=== PATIENT | male | born 1940 | race African-American/Black ===

== ENCOUNTER 2024-02-06 13:56 | Emergency (ER) | payer MEDICAID, SELFPAY ==
--- NOTE | ~2024-02-06 | CT_ITS ---
EXAMINATION: CT HEAD WITHOUT CONTRAST (STROKE PROTOCOL) CLINICAL INFORMATION: Stroke protocol. Unresponsive. Question left versus right sided weakness. COMPARISON: None available. TECHNIQUE: Contiguous axial imaging was performed from the skull base to vertex without intravenous administration of contrast. This CT examination was performed using dose optimization techniques as appropriate, variously including the following: *Automated exposure control *Adjustment of mA and/or kV according to patient size (this includes techniques or standardized protocols for targeted exams where dose is matched to indication/reason for exam; i.e. extremities or head) *Use of iterative reconstruction technique DLP: 820 mGy-cm FINDINGS: There is no evidence of an extra-axial collection. There is no evidence of intra or extra-axial hemorrhage. The ventricles are extra-axial CSF spaces are prominent suggestive of generalized atrophy. There is nonspecific periventricular white matter disease. There is low-attenuation seen in the bilateral basal ganglia and possible internal capsule, right side greater than left, and left side of the thalamus questionable for lacunar infarcts. No old exams are available for comparison and these are age indeterminate. This could be better evaluated with MRI of the brain if clinically indicated. No mass or mass effect. Atherosclerotic disease. No skull fracture. Clear sinuses and mastoid air cells and middle ears. CT/CT head for stroke IMPRESSION: Generalized atrophy and nonspecific periventricular white matter disease. Question bilateral basal ganglia/internal capsule and left thalamic lacunar infarcts. No old exams are available for comparison and these are age indeterminate. Further evaluation with MRI to evaluate for acute stroke should be considered if clinically indicated. This critical result was discussed with Rashaad Odell at 1449 hours on 02/06/2024. It was ascertained that the content and urgency of the report was understood at the time of direct communication.
--- NOTE | ~2024-02-06 | XR_ITS ---
EXAMINATION: XR CHEST CLINICAL INFORMATION: Post intubation. COMPARISON: None available. TECHNIQUE: Frontal portable view of the chest was obtained. 2:29 PM FINDINGS: Tubes and lines: 1. Endotracheal tube catheter tip 5 cm above the eleanor. 2. Enteric catheter tip and sidehole in stomach. Lung volume low causing prominence of the bronchovascular markings. No overt pulmonary edema. No focal consolidation. No pleural effusion and no pneumothorax. XR/XR chest 1V IMPRESSION: 1. Endotracheal tube catheter tip 5 cm above the eleanor. 2. Enteric catheter tip and sidehole in stomach. 3. Low lung volume causing prominence of the bronchovascular markings. No focal consolidation.
--- NOTE | 2024-02-06 14:00 | PC.NURSE ---
Addendum entered by Jessica Castellon 02/06/24 15:14: See paper charting for more indepth patient care comments and time stamps. Original Note: Pt presented to ED via EMS from [facility], EMS reports SNF called due to pt being unresponsive. LKWT 1230PM, staff went into room at 1PM and found him unresponsive and called for EMS. Pt is a DNR/DNI and do not transfer to hospital, however, family override MOLST. EMS called in STROKE ALERT, also gave 2 mg of narcan IN due to pinpoint pupils with no effect. Pt is normally alert and talkative at baseline, confused due to dementia. Pt presented unresponsive with poor respiratory drive. MD, RT and RNs at bedside. Decision made by MD to RSI and secure airway. Pt medicated per JAN, IO access in established in right tibia and left humerus due to no IV access obtained (multiple attempts, pt has very poor venous access). 7.5 ETT placed by MD, no incident during intubation, pt tolerated well. Pt placed on vent and sent to CT scan with RNs. Vital signs listed above.
[2024-02-06 14:03] VITALS: BP 151/75; PULSE 70; RESP 12; O2SAT 98
--- NOTE | 2024-02-06 14:05 | ECG_ITS ---
Test Reason : AMS Blood Pressure : / mmHG Vent. Rate : 081 BPM Atrial Rate : 081 BPM P-R Int : 174 ms QRS Dur : 116 ms QT Int : 442 ms P-R-T Axes : 054 054 -46 degrees QTc Int : 513 ms Normal sinus rhythm Incomplete left bundle branch block Abnormal QRS-T angle, consider primary T wave abnormality Prolonged QT Abnormal ECG No previous ECGs available Referred By: Anna Ponce Electronically Signed By:Nahum Castro
[2024-02-06 14:06] LABS: Glucose, Whole Blood 101 mg/dL (60-115)
[2024-02-06] MEDS: Etomidate 20 MG/10 ML VIAL IVPUSH (14:08)
[2024-02-06] MEDS: Rocuronium Bromide 50 MG/5 ML VIAL IVPUSH (14:09)
[2024-02-06 14:15] VITALS: BP 217/112; PULSE 84; RESP 18; O2SAT 98
[2024-02-06 14:18] VITALS: BMI 29.9
--- NOTE | 2024-02-06 14:19 | ED_ITS ---
HPI - Altered Mental Status General Chief Complaint: Stroke Stated Complaint: UNRESPONSIVE WITH PULSE,STROKE ALERT Time Seen by Provider: 02/06/24 14:04 Source: EMS Mode of arrival: EMS Limitations: altered mental status History of Present Illness HPI narrative: 83-year-old male with a history of coronary disease, hypertension, hyperlipidemia, stroke with aphasia, cirrhosis, abdominal aortic aneurysm, BPH, dementia, aortic stenosis, mitral insufficiency who was transferred from his long-term care facility, [facility] for evaluation of altered mental status. Information came from the paramedics. The paramedics state that the patient was last known well at 12:30. When they checked in on him again at 13:00 he was altered and unresponsive. Transfer no from the facility states the following ?unresponsive. Kind of responsive to sternal rub/blinks his eyes ?. Patient's vital signs at the facility were as follows blood pressure 177/107, heart rate 70, respiratory 12, temperature 98.6 degrees, O2 saturation 100% on room air, point of care glucose was 135 taking at 13:00 hours. Patient was brought to emergency department as a possible stroke however paramedics reported that the patient became less responsive and he was brought immediately to resuscitation room. Paramedics did give Narcan with only minimal response. He was given a 2nd dose of Narcan 4 mg intranasally with no response. Patient was not responding to sternal rub or painful stimuli, his respiratory rate was elevated but his respiratory effort was very diminished. Given this fact, the patient was intubated prior to getting a CT scan of the head. Related Data Allergies Allergy/AdvReac Type Severity Reaction Status Date / Time Unable to Assess Allergy Verified 02/06/24 14:05 Review of Systems 2 Review of Systems: Yes Unobtainable due to mental condition PMFSH Social History Social History Advance Directives: Yes Advance Directives Information Provided: No Advance Directives on File: No Physical Exam ED Vital Signs: Vital Signs - 24 hr 02/06/24 14:03 02/06/24 14:15 02/06/24 14:40 Temperature Pulse Rate 70 84 Respiratory Rate 12 18 Blood Pressure 151/75 H 217/112 H Pulse Oximetry 98 98 Oxygen Delivery Method Room Air Mechanical Ventilation Oxygen Flow Rate 15 Fraction of Inspired Oxygen 40 02/06/24 14:59 Temperature 96.4 F L Pulse Rate 81 Respiratory Rate 16 Blood Pressure 170/91 H Pulse Oximetry 100 Oxygen Delivery Method Mechanical Ventilation Oxygen Flow Rate Fraction of Inspired Oxygen 40 BMI result Body Mass Index 29.9 Vital signs revealed an elevated blood pressure initially of 151/75 and after intubation blood pressure was elevated 217/112, O2 saturation was 98% on room air but the patient's respiratory effort appeared to be compromised Exam: General: Patient was unresponsive to painful stimuli Head: Normocephalic, atraumatic EENT: Pupils pinpoint, Lids normal, sclera normal, conjunctiva normal, nose normal , very poor dentition, Neck: No ecchymosis or adenopathy Lung: Very diminished lung sounds with poor inspiratory and expiratory flow Chest: Minimal respiratory effort/chest movement Heart: regular rate and rhythm, normal S1, S2 no murmurs or rubs Abdomen: soft, nondistended Extremities: No deformity Neuro: Not responsive to painful stimuli Medications Administered Discontinued Medications Generic Name Dose Route Start Last Admin Trade Name Freq PRN Reason Stop Dose Admin Etomidate 20 mg 02/06/24 14:16 02/06/24 14:08 Etomidate 20 Mg/10 Ml Vial IVPUSH 02/06/24 14:17 20 mg ONCE ONE Administration Rocuronium Almo 50 mg 02/06/24 14:16 02/06/24 14:09 Rocuronium Almo 50 Mg/5 Ml Vial IVPUSH 02/06/24 14:17 50 mg ONCE ONE Administration Medical Decision Making Medical Decision Making [facility] Narrative: 83-year-old male with a history of coronary disease, hypertension, hyperlipidemia, stroke with aphasia, cirrhosis, abdominal aortic aneurysm, BPH, dementia, aortic stenosis, mitral insufficiency who was transferred from his long-term care facility, [facility] for evaluation of altered mental status. Patient's last well-known time was 12:30 hours and he was found unresponsive at 13:00 hours. Paramedics reported that his level of consciousness decreased during transport and I did give intranasal Narcan with no improvement he also received intranasal Narcan here in the emergency department with no improvement. Patient had minimal respiratory effort therefore he was brought to resuscitation room and intubated. After his airway was secured he was sent to the CT scan to rule out stroke versus bleed Information came from the paramedics. The paramedics state that the patient was last known well at 12:30. When they checked in on him again at 13:00 he was altered and unresponsive. Transfer no from the facility states the following ?unresponsive. Kind of responsive to sternal rub/blinks his eyes ?. Patient's vital signs at the facility were as follows blood pressure 177/107, heart rate 70, respiratory 12, temperature 98.6 degrees, O2 saturation 100% on room air, point of care glucose was 135 taking at 13:00 hours. The patient has a MOLST form which stated that he was a do not intubate, do not resuscitate and do not transfer to the hospital. According to the note sent from his care facility, the patient's healthcare proxy reversed this ordered therefore the patient was sent to the emergency department 15:05 I did discuss the CT scan findings with the radiologist, the patient has atrophy with significant white matter changes. There were bilateral lacunar basal ganglia/internal capsular infarcts but no acute bleed, mass effect or large stroke seen on the CT scan. I did attempt to contact and next of kin number listed for Samuel Byrne however this was a disconnected phone number. board of education secretary will contact the patient's care cephalic to get next the can number so we can discuss further management of this patient. At this time, given his age, underlying medical condition and possibility of a large stroke, I do not think that he would be a thrombolytics candidate or candidate for thrombus retrieval. 15:37 I did discuss the patient's presentation and my concerns with the patient's brother, Samuel Byrne who lives in [place]. His brother is the patient's healthcare proxy. After my discussion with the brother, the brother would like to make the patient comfort measures only therefore the patient was extubated.. The patient will be treated with morphine as needed for dyspnea or discomfort and oxygen as needed for dyspnea and discomfort. 15:50 After the patient was extubated, he had several agonal respirations and eventually stop breathing. Patient had no palpable pulses no response to painful stimuli therefore he was pronounced at 15:50 hours. The patient's nurse, linen tech and biometric fingerprinting technician were present at the patient's bedside while he . I did discuss the patient's with his brother and his brother had no further questions for me. 17:17 I did discuss the patient with the director of medical review Nilda Osorio and she declined jurisdiction. certified driver examiner case #: [id number] Admission/Observation Consideration of admission/observation: Escalation of care including admission/observation considered Lab Data Patient's potassium was elevated 6.2 but this was a hemolyzed specimen 02/06/24 14:58 02/06/24 14:58 Labs: Lab Results 02/06/24 02/06/24 02/06/24 Range/Units 14:02 14:05 14:58 Whole Blood PT 19.9 H (11.1-13.5) sec Whole Blood INR 1.7 H (0.9-1.1) Sodium 136 (135-145) mmol/L Potassium 6.2 H* (3.3-5.1) mmol/L Chloride 109 H (96-108) mmol/L Carbon Dioxide 22 (22-29) mmol/L Anion Gap 11 L (12-20) BUN 26 H (9-16) mg/dL Creatinine 1.15 (0.5-1.4) mg/dL Estim Creat Clear Calc 54.5 Estimated GFR > 60 POC Glucose 101 (60-115) mg/dL Random Glucose 105 (60-115) mg/dL Calcium 9.0 (8.4-10.2) mg/dL Magnesium 2.5 (1.6-2.6) mg/dL Total Bilirubin 0.8 (0.0-1.0) mg/dL AST 63 H (5-37) U/L ALT 42 H (0-40) U/L Alkaline Phosphatase 79 (39-117) U/L Troponin I High Sens < 2.7 (<3.5-35.0) ng/L Total Protein 9.2 H (6.5-8.0) g/dL Albumin 4.1 (3.5-5.0) g/dL Independent Interpretation I performed an independent interpretation of an: Plain X-Ray Interpretation: My independent interpretation of the patient's one-view chest x-ray is as follows: Endotracheal tube was above the eleanor, tip of the O2 tube was in the stomach.. Patient does have increased vascular markings but no focal consolidation. Radiology Impression Discussion of test interpretation with radiology: I discussed test interpretation with the radiologist (CT scan did not reveal any acute stroke or bleed) and I have reviewed the radiologist's reading. Radiologist Impression: XR chest 1V IMPRESSION: 1. Endotracheal tube catheter tip 5 cm above the eleanor. 2. Enteric catheter tip and sidehole in stomach. 3. Low lung volume causing prominence of the bronchovascular markings. No focal consolidation. Dictated By: Axel Mack MD CT head for stroke IMPRESSION: Generalized atrophy and nonspecific periventricular white matter disease. Question bilateral basal ganglia/internal capsule and left thalamic lacunar infarcts. No old exams are available for comparison and these are age indeterminate. Further evaluation with MRI to evaluate for acute stroke should be considered if clinically indicated. This critical result was discussed with Rashaad Odell at 1449 hours on 02/06/2024. It was ascertained that the content and urgency of the report was understood at the time of direct communication. Dictated By: Anna Hernandez MD Procedures Procedure Narrative Procedure Narrative: Orogastric tube insertion: The orogastric tube was inserted by the rn admission student under my direct supervision. Air was insufflated through the tube and the patient had good sounds over the gastric region. Do placement was confirmed by chest x-ray which revealed that the tip of the tube is in the stomach. Intubation Intubation Type:: Emergency Endotracheal Intubation Intubation Date:: 02/06/24 Time out performed: No sedative: Etomidate Mg Given: 20 paralytic: Rocuronium Mg Given: 50 Laryngoscope: fiber optic video scope ET Tube Size: 7.5 ET Tube Uncuffed: No Tube Secured Depth (cm): 23 Tube Secured Location: lips Tube Placement Confirmation: visualized tube passing through cords Patient Tolerated Procedure: well Intubation Complications: none Additional Comments: The intubation was done by the rn admission student under my direct supervision. The tube was visualized going through the cords. Patient had symmetric breath sounds after intubation. Chest x-ray revealed that the endotracheal tube was above the eleanor in good position. IO Left Humerus: Time Out Performed: No IO Instrument Used to Penetrate the Cortex: battery powered IO drill Patient Tolerated Procedure: well and no complications Complications: none Additional Comments: Patient had a right tibial IO and a left humerus IO placed by our rn admission student under my direct supervision Critical Care Time Critical Care Time Critical Care Time: Yes Total Critical Care Time: 80 Attestation: Critical Care: The patient was critically ill with a high probability of imminent or life threatening deterioration. I spent greater than 30 minutes of discontinuous time evaluating the patient,delivering critical care at the bedside, discussing and evaluating pertinent data with consultants. Critical care time does not include time spent performing separately billable procedures or teaching. Total time spent performing critical care was 55 minutes. Discharge Plan Discharge Clinical Impression: Cerebrovascular accident, Patient Disposition:
[2024-02-06 14:23] VITALS: BP 182/106; PULSE 72; O2SAT 100
[2024-02-06 14:34] LABS: Prothrombin Time Whole Bld POC 19.9 sec (11.1-13.5); ~PT, ~INR - Anti Coag Clinic 1.7 (0.9-1.1)
[2024-02-06 14:40] VITALS: PULSE 82; TEMP 31.4; O2SAT 98
--- NOTE | 2024-02-06 14:44 | PC.RT ---
Pt came in via EMS unresponsive, w/ pulse, w/ voluntary breathing on 2L NC SATs 100%. In ER, solid waste collector student intubated pt w/ MD, RTx2 and RNx4 at bedside. Pt intubated w/ 7.5 ETT 23cm@lip. Positive color metric, ETCO2, adequate chest rise, equal breath sounds, and x-ray post intubation. Pt placed on portable vent and transported to CT for scan and x-ray. Pt brought back to room and placed on 980 mechanical ventilation as documented. Pt tolerated current settings well.
[2024-02-06 14:59] VITALS: BP 170/91; PULSE 81; RESP 16; TEMP 35.8; O2SAT 100
--- NOTE | 2024-02-06 15:06 | PC.NURSE ---
Per RT vent settings: RR 16, TV 400, FiO2 40%, PEEP 5 Pt tolerating vent well at this time, negative for any agitation and bucking of the ETT.
--- NOTE | 2024-02-06 15:12 | MHC.STROKE ---
Notified of incoming Stroke Alert by EMS at 1352 by ED medical assistant secretary. Pt arrived to ED unresponsive, MD unable to perform full neuro assessment due to patients AMS. LKWT per EMS was 1230. Pinpoint pupils per EMS and Narcan was given by them with minimal effect. Hx CVA Pt placed in bed 18. Decision was made to intubate as patient presented with shallow respirations. Please see RT note. Pt remained unresponsive and had no purposeful reaction to IO placement x 2. Once patient stabilized, pt brought to CT scan with RN and RT. CT result called to DR. Odell - no bleed noted. MD is attempting to call family to discuss how aggressive they want treatment to be. Attempted to call numbers listed on [place] paperwork Numbers out of service. Will continue to assist as needed.
--- NOTE | 2024-02-06 15:13 | PC.NURSE ---
Pt currently tolerating vent well, no sedation at this time. Pts vital signs recorded, remains hypertensive. Pt is on bedside electronic device monitor, NSR.
--- NOTE | 2024-02-06 15:24 | PC.NURSE ---
Per MD: HCP was contacted and decision made to make pt HEAT CURER and extubate. Pt extubated by RT, RNs and MD at bedside. MD orders to place pt on 2L O2 via NC for comfort, monitor for comfort at this time. HCP Samuel Kraft [phone], the brother
[2024-02-06 15:38] LABS: Alanine Aminotransferase 42 U/L (0-40); Albumin Level 4.1 g/dL (3.5-5.0); Alkaline Phosphatase 79 U/L (39-117); Anion Gap 11 (12-20); Aspartate Amino Transferase 63 U/L (5-37); Bilirubin Total 0.8 mg/dL (0.0-1.0); Blood Urea Nitrogen 26 mg/dL (9-16); Carbon Dioxide 22 mmol/L (22-29); Chloride 109 mmol/L (96-108); Creatinine Clr Calc Pharmacy 54.5; Estimated Glomerular Filt Rate > 60; Glucose Random 105 mg/dL (60-115); Magnesium 2.5 mg/dL (1.6-2.6); Sodium 136 mmol/L (135-145); Total Protein 9.2 g/dL (6.5-8.0); Troponin-I High Sensitivity < 2.7 ng/L (<3.5-35.0)
--- NOTE | 2024-02-06 15:58 | PC.NURSE ---
Time of at this time, Dr Odell to bedside to pronounce and will notify family
--- NOTE | 2024-02-06 15:59 | MHC.EDTECH ---
Waiting for call back from Electronic Equipment Maint Tech at 1559.
[2024-02-06 18:07] LABS: Red Cell Distribution Width 16.4 % (11.0-16.0); SCAN SMEAR FLAG 1
[2024-02-06 18:09] LABS: Basophils Percent Auto 0.2 % (0-2); Eosinophils Absolute Auto 0.1 X10*3/uL (0.0-0.4); Eosinophils Percent Auto 2.7 % (0-4); Hematocrit 43.7 % (42.0-52.0); Hemoglobin 13.4 g/dl (14.0-18.0); Imm Gran Abs Auto 0.01 X10*3/uL (0.00-0.03); Imm Gran Pct Auto 0.2 % (0.0-0.4); Lymphocytes Absolute Auto 2.2 X10*3/uL (1.2-4.9); Lymphocytes Percent Auto 54.6 % (20-40); MANUAL DIFF FLAG SCAN; Mean Corpuscular HGB Conc 30.7 g/dl (31.0-36.0); Mean Corpuscular Hemoglobin 23.8 pg (27.0-33.0); Mean Corpuscular Volume 77.6 fL (80.0-98.0); Monocytes Absolute Auto 0.6 X10*3/uL (0.1-1.2); Monocytes Percent Auto 15.6 % (2-11); Neutrophils Absolute Auto 1.1 x10*3/uL (2.0-8.3); Neutrophils Percent Auto 26.7 % (45-73); Red Blood Count 5.63 X10*6/uL (4.60-5.80); White Blood Count 4.1 X10*3/uL (4.8-10.8)
[2024-02-06 18:12] LABS: PLT ABN DIST 1; Platelet Count 90 X10*3/uL (160-400)
[2024-02-06 18:22] LABS: SLIDE REVIEW VERIFIED
--- NOTE | 2024-02-06 18:26 | PC.NURSE ---
[facility] called, declined. Spoke to Megan, reference number [id number]
[2024-02-06 19:20] LABS: Potassium 6.2 mmol/L (3.3-5.1)
== END 2024-02-06 18:47 | disposition expired ==
PROVIDERS: Student in an Organized Health Care Education/Training Program; Emergency Provider Emergency Medicine Emergency Medical Services; PCP Physician Assistant Medical
DX: I63.9 Cerebral infarction, unspecified (principal); R40.4 Transient alteration of awareness; I25.10 Atherosclerotic heart disease of native coronary artery without angina pectoris; I44.7 Left bundle-branch block, unspecified; R94.31 Abnormal electrocardiogram [ECG] [EKG]; R51.9 Headache, unspecified; Z79.899 Other long term (current) drug therapy
CPT/HCPCS: 31500; 43752; 70450; 71045; 80053; 82947; 83735; 84484; 85025; 85610; 93005; 94002; 96374; 96375; 99284; 99285

== ENCOUNTER → 2024-02-06 14:05 | Outpatient (BNV) | payer MEDICAID, SELFPAY | PROVIDERS: Emergency Provider Emergency Medicine Emergency Medical Services; PCP Physician Assistant Medical; Visit Provider Internal Medicine Cardiovascular Disease | DX: R94.31 Abnormal electrocardiogram [ECG] [EKG] (principal) | CPT/HCPCS: 93010 ==